=== PATIENT | female | born 1965 | race Caucasian/White ===

== ENCOUNTER → 2021-03-18 15:04 | Outpatient (CLI) | payer BC, SELFPAY ==
--- NOTE | ~2021-03-18 | MM_ITS ---
EXAMINATION: MM screening jessica BI w viki HISTORY: Screening mammogram TECHNIQUE: Craniocaudal and mediolateral oblique 3-D tomosynthesis images were obtained and synthetic 2-D images were generated. CAD analysis was submitted and interpreted. COMPARISON: 10/17/2018, 06/02/2017, 10/08/2015 bilateral digital screening mammogram examinations BREAST PARENCHYMAL COMPOSITION: There are scattered areas of fibroglandular density. FINDINGS: Stable fibroglandular asymmetry. There is no evidence of suspicious mass, calcification, or architectural distortion to suggest malignancy in either breast. There has been no suspicious interv al change. IMPRESSION: 1. No mammographic evidence of malignancy. 2. Recommend routine screening mammography in one year. BI-RADS Category 2: Benign finding(s). Reviewed, dictated and finalized at location A.
== END ==
PROVIDERS: PCP Family Medicine Adolescent Medicine; Visit Provider Obstetrics & Gynecology
DX: Z12.31 Encounter for screening mammogram for malignant neoplasm of breast (principal)
CPT/HCPCS: 77063; 77067

== ENCOUNTER → 2022-03-21 10:00 | Outpatient (CLI) | payer BC, SELFPAY ==
--- NOTE | ~2022-03-21 | DEXA_ITS ---
Bone Density Report Name: DEN FAUST Age: 57 Sex: Female Ethnicity: White Date of : 1965 Indication: postmenopausal; screening for osteoporosis; hysterectomy; Referring Provider: LUDMILA, SARA Study: Bone densitometry was performed. Exam Date: March 21, 2022 Accession number: [id number] Bone Density: Region BMD T-score Z-score Classification AP Spine (L1-L4) 1.267 2.0 3.1 Normal Femoral Neck (Left) 1.038 1.7 2.8 Normal Total Hip (Left) 1.228 2.3 3.0 Normal Femoral Neck (Right) 0.961 1.0 2.1 Normal Total Hip (Right) 1.177 1.9 2.6 Normal Total Hip Mean 1.203 2.1 2.8 Normal World Health Organization criteria for BMD impression classify patients as: Normal (T-score at or above -1.0), Osteopenia (T-score between -1.0 and -2.5), or Osteoporosis (T-score at or below -2.5). 10-year Fracture Risk: FRAX not reported because: All T-scores for Spine Total, Hip Total, Femoral Neck at or above -1.0 Clinical Information Provided by Patient: Has the following medical conditions: Hysterectomy Patient maximum height was 68 Menopause Age: 54 No regular weight bearing exercise Drinks caffeinated beverages Onset of menses at age 16 Number of children 1 Impression: The patient has normal bone mass. Discussion: LOW RISK OF FRACTURE; BONE DENSITY IS WELL ABOVE THE MINIMUM DESIRABLE LEVEL AND ABOVE AVERAGE FOR AGE AND SEX AT ALL SKELETAL SITES TESTED. This person's bone density is above expected limits for age and sex. This is rarely clinically significant, but should be pursued if there are significant musculoskeletal complaints. The patient should follow a healthful lifestyle (good nutrition with adequate calcium and vitamin D, and appropriate weight-bearing exercise). Follow-Up: Consider repeating this study in 5 years or sooner if there is some new clinical indication. Reported by: MONI on 03/21/2022 10:55:00 AM. Reviewed, dictated and finalized at location AJossie LEE
--- NOTE | ~2022-03-21 | MM_ITS ---
EXAMINATION: MM screening jessica BI w viki HISTORY: Screening TECHNIQUE: Craniocaudal and mediolateral oblique 3-D tomosynthesis images were obtained and synthetic 2-D images were generated. CAD analysis was submitted and interpreted. COMPARISON: Comparison to multiple prior studies sequentially, with oldest reviewed study dated 12/17. BREAST PARENCHYMAL COMPOSITION: Breast composed of scattered areas of fibroglandular density FINDINGS: There is no evidence of suspicious mass, calcification, or architectural distortion to sugg est malignancy in either breast. There has been no suspicious interval change. IMPRESSION: 1. No mammographic evidence of malignancy. 2. Recommend routine screening mammography in one year. BI-RADS Category 1: Negative Reviewed, dictated and finalized at location A.
== END ==
PROVIDERS: PCP Nurse Practitioner; Visit Provider Nurse Practitioner
DX: Z12.31 Encounter for screening mammogram for malignant neoplasm of breast (principal); Z78.0 Asymptomatic menopausal state
CPT/HCPCS: 77063; 77067; 77080

== ENCOUNTER 2022-03-23 00:29 | Day surgery (SDC) | payer BC, SELFPAY ==
[2022-03-03 14:44] VITALS: BMI 40.7
[2022-03-23 07:59] VITALS: BP 155/93; PULSE 65; RESP 20; TEMP 36.3; O2SAT 98; BMI 40.9
[2022-03-23] MEDS: LACTATED RINGERS 1,000 ML 150 ML IV CONT (08:08)
--- NOTE | 2022-03-23 08:41 | P.PNAN_ITS ---
Anes - Initial Pre Proc Eval Procedure: Operation Date: 03/23/22 09:00 Proposed Procedures p Screening Colonoscopy - Layo Luna MD Date/Time: 03/23/22 08:41 Surgeon: Layo Luna MD Pre Op Diagnosis: neoplasm screening Patient Data Age: 57 Gender: F Height: 1.7 m Weight: 118.7 kg Last Vital Signs Temp 97.3 F L 03/23/22 07:59 Pulse 65 03/23/22 07:59 Resp 20 03/23/22 07:59 BP 155/93 H 03/23/22 07:59 Pulse Ox 98 03/23/22 07:59 O2 Del Method Room Air 03/23/22 07:59 Allergies Allergy/AdvReac Type Severity Reaction Status Date / Time No Known Allergies Allergy Mild Verified 03/23/22 07:57 Home Medications Medication Instructions Recorded Confirmed Type sertraline 50 mg tablet 50 mg PO DAILY #30 tabs 12/05/21 03/03/22 Rx atorvastatin 40 mg tablet 40 mg PO DAILY 03/03/22 03/03/22 History cholecalciferol (vitamin D3) 1,250 1 tablet PO WEEKLY 03/03/22 03/03/22 History mcg (50,000 unit) tablet (Dialyvite Vitamin D3 Max) fexofenadine 180 mg tablet 180 mg PO DAILY 03/03/22 03/03/22 History fluticasone propionate 50 1 spray intranasal BID PRN Allergy 03/03/22 03/03/22 History mcg/actuation nasal Symptoms spray,suspension hydrochlorothiazide 12.5 mg tablet 12.5 mg PO DAILY 03/03/22 03/03/22 History losartan 100 mg tablet 100 mg PO DAILY 03/03/22 03/03/22 History mecobalamin (vitamin B12) 1,000 1,000 mcg PO DAILY 03/03/22 03/03/22 History mcg chewable tablet Patient hx anesthesia problems: none Family hx anesthesia problems: none Results Review: All pre-operative results and documents have been reviewed as part of the pre- operative evaluation. [facility] Social History Social History Smoking status: Former smoker Tobacco type: cigarettes Alcohol intake: current Alcohol use details: occasionally Living arrangements: with family Spiritual care concerns: No Anes - Eval Final PreProcedure Day of Procedure 06/29/22 08:41 Patient weight: morbidly obese Heart: regular rate and rhythm Lungs: clear to auscultation Airway: Mallampati scale class II Neurological: alert and oriented Last oral intake: >/= 8 hours ASA classification: III Emergent: no Anesthetic plan: proceed Anesthesia type and monitoring: general GIVS and standard monitoring Results Review: All pre-operative results and documents have been reviewed as part of the pre- operative evaluation. Informed Consent: The patient's anesthetic plan and its attendant risks and benefits were discussed with the patient/family/POA. Questions were solicited and answers provided to the satisfaction of the patient/family/POA.
--- NOTE | 2022-03-23 08:59 | PM.HPGS ---
History of Present Illness History of Present Illness Consent: Risks, benefits, and alternatives have been discussed and questions answered. Patient agrees to proceed with procedure. Chief complaint: neoplasm screening Narrative: Gale Bernard is a 57 year old female here for first screening colonoscopy Review of Systems Constitutional: Constitutional: Denies headache(s) and Denies weakness Eyes: Eyes: Denies blurry vision ENT: Reports Normal hearing present, Denies headache(s) and Denies neck pain Cardiovascular: Cardiovascular: Denies chest pain and Denies dyspnea Respiratory: Respiratory: Denies dyspnea Gastrointestinal: Gastrointestinal: Reports no additional gastrointestinal complaints Genitourinary: Genitourinary: Denies dysuria Musculoskeletal: Musculoskeletal: Denies neck pain Integumentary/Breasts: Skin/Breast: Denies dry skin Neurologic: Reports Normal hearing present, Denies headache(s) and Denies weakness Psychiatric: Psychiatric: Denies anxiety Endocrine: Endocrine: Denies change in body appearance Hematologic/Lymphatic: Hematologic/Lymphatic: Denies easy bleeding Allergic/Immunologic: Allergic/Immunologic: Denies urticaria PMFSH Past Medical History Medical History (Updated 03/23/22 @ 09:02 by Layo Luna MD) Colon cancer screening Social History Social History Smoking status: Former smoker Tobacco type: cigarettes Alcohol intake: current Alcohol use details: occasionally Living arrangements: with family Spiritual care concerns: No Meds Home Medications and Allergies Home Medications Medication Instructions Recorded Confirmed Type sertraline 50 mg tablet 50 mg PO DAILY #30 tabs 12/05/21 03/03/22 Rx atorvastatin 40 mg tablet 40 mg PO DAILY 03/03/22 03/03/22 History cholecalciferol (vitamin D3) 1,250 1 tablet PO WEEKLY 03/03/22 03/03/22 History mcg (50,000 unit) tablet (Dialyvite Vitamin D3 Max) fexofenadine 180 mg tablet 180 mg PO DAILY 03/03/22 03/03/22 History fluticasone propionate 50 1 spray intranasal BID PRN Allergy 03/03/22 03/03/22 History mcg/actuation nasal Symptoms spray,suspension hydrochlorothiazide 12.5 mg tablet 12.5 mg PO DAILY 03/03/22 03/03/22 History losartan 100 mg tablet 100 mg PO DAILY 03/03/22 03/03/22 History mecobalamin (vitamin B12) 1,000 1,000 mcg PO DAILY 03/03/22 03/03/22 History mcg chewable tablet Allergies Allergy/AdvReac Type Severity Reaction Status Date / Time No Known Allergies Allergy Mild Verified 03/23/22 07:57 Vital Signs Vital Signs - 24 hr 03/23/22 07:59 Temperature 97.3 F L Pulse Rate 65 Respiratory Rate 20 Blood Pressure 155/93 H Pulse Oximetry 98 Oxygen Delivery Room Air Exam Const: General: comfortable and no acute distress HENMT: General nose exam: Normal nares present Eyes: General: appearance normal, both eyes and all related structures Neck: Neck: no JVD Resp: Auscultation: clear to auscultation bilaterally Cardio: Rate: regular rate Rhythm: regular rhythm GI: Inspection: non-distended GI Palp: Yes Soft to palpation Skin: General skin exam: normal color Neuro: General: gait normal Speech: normal speech Extrem: General: normal to inspection Psych: Mental Status: mental status grossly normal Assessment and Plan Assessment and plan (1) Colon cancer screening: Code(s): Z12.11 - Encounter for screening for malignant neoplasm of colon Status: Acute Assessment and Plan: colonoscopy
[2022-03-23 09:21] VITALS: BP 124/78; PULSE 64; RESP 13; O2SAT 94
[2022-03-23 09:31] VITALS: BP 128/77; PULSE 65; RESP 12; O2SAT 97
[2022-03-23 09:41] VITALS: BP 128/80; PULSE 60; RESP 12; O2SAT 97
== END 2022-03-23 09:45 | disposition home or self-care (01) ==
PROVIDERS: PCP Nurse Practitioner; Visit Provider Internal Medicine Gastroenterology
PROC: 0DJD8ZZ Inspection of Lower Intestinal Tract, Via Natural or Artificial Opening Endoscopic (ICD-10-PCS; CPT 45378; principal; 2022-03-23 09:00)
DX: Z12.11 Encounter for screening for malignant neoplasm of colon (principal); K57.30 Diverticulosis of large intestine without perforation or abscess without bleeding; Z87.891 Personal history of nicotine dependence; E66.01 Morbid (severe) obesity due to excess calories; Z68.41 Body mass index [BMI] 40.0-44.9, adult
CPT/HCPCS: 45378; J2001; J2704; J7120

== ENCOUNTER 2022-10-18 20:53 | Emergency (ER) | payer BC, SELFPAY ==
--- NOTE | ~2022-10-18 | XR_ITS ---
EXAM: XR ankle RT min 3V DATE: 10/18/2022 21:53 HISTORY: fall . COMPARISON: None available. FINDINGS: Normal mineralization. Oblique minimally displaced fracture of the distal right fibula ext ending to the level of the joint line. No other fracture. No dislocation. No lytic or blastic lesion. Achilles and plantar enthesopathy. No erosion or periosteal change. Lateral soft tissue swelling. IMPRESSION: Oblique distal right fibular fracture (Fagan type B fracture). Reviewed, dictated and finalized at location K. ACER
--- NOTE | ~2022-10-18 | XR_ITS ---
EXAM: XR ankle LT min 3V DATE: 10/18/2022 21:53 HISTORY: fall . COMPARISON: None available. FINDINGS: Normal mineralization. No fracture or dislocation. No lytic or blastic lesion. Joint space s are maintained. No erosion or periosteal change. Soft tissues within normal limits. IMPRESSION: No acute osseous finding in the left ankle. Reviewed, dictated and finalized at location K. [employer]ISH[employer]
[2022-10-18 21:10] VITALS: BP 149/85; PULSE 72; RESP 16; TEMP 36.8; O2SAT 97
--- NOTE | 2022-10-18 22:32 | ED.LOWEXIN ---
HPI - Extremity Injury (Lower) General Chief Complaint: Extremity Injury, Lower Stated Complaint: fell down 1 concrete step-pain in bilateral ankle Time Seen by Provider: 10/18/22 22:21 History of Present Illness HPI Narrative: Patient is a 57-year-old female here for evaluation of bilateral ankle pain. Patient states that she was going down steps when she missed a step and fell, landing with her right ankle in eversion. She denies any head injury or loss of consciousness. She has been unable to walk due to pain. Has not taken any pain meds yet. No numbness, tingling, weakness in the leg. She was in her usual state of health prior to the fall. Related Data Home Medications Medication Instructions Recorded Confirmed atorvastatin 40 mg tablet 40 mg PO DAILY 03/03/22 06/07/22 cholecalciferol (vitamin D3) 1,250 1 tablet PO WEEKLY 03/03/22 06/07/22 mcg (50,000 unit) tablet (Dialyvite Vitamin D3 Max) hydrochlorothiazide 12.5 mg tablet 12.5 mg PO DAILY 03/03/22 06/07/22 losartan 100 mg tablet 100 mg PO DAILY 03/03/22 06/07/22 mecobalamin (vitamin B12) 1,000 1,000 mcg PO DAILY 03/03/22 06/07/22 mcg chewable tablet fexofenadine 180 mg tablet 180 mg PO DAILY 06/07/22 06/07/22 ([facility]) fluticasone propionate 50 2 spray intranasal DAILY 06/07/22 06/07/22 mcg/actuation nasal spray,suspension (Flonase Allergy Relief) Allergies Allergy/AdvReac Type Severity Reaction Status Date / Time No Known Allergies Allergy Mild Verified 10/18/22 22:41 Review of Systems Review of Systems: Gen.: Denies fevers or chills Eyes: Denies eye pain or visual change ENT: Denies congestion Respiratory: Denies shortness of breath or cough CV: Denies chest pain or palpitations GI: Denies abdominal pain nausea, emesis or diarrhea denies burning, urgency, frequency or hematuria Musculoskeletal: Reports bilateral ankle pain. Neuro: Denies numbness, tingling, weakness or focal weakness Skin: Denies rash Except as documented, all other systems reviewed and negative PMFSH Surgical History Surgical History History of hysterectomy (~07/2017) Hx of dilation and curettage Social History Social History Smoking status: Former smoker Tobacco type: cigarettes Alcohol intake: current Alcohol use details: occasionally Living arrangements: with family Spiritual care concerns: No Exam Narrative: Gen: Alert, oriented, no acute distress Eyes: EOMI, no icterus Pulm: Respirations even and unlabored, symmetric thorax expansion, no audible stridor or visible cyanosis CV: Regular rate per telemetry GI: No distension, no voluntary/involuntary guarding Neuro: AOx4, moves all extremities without apparent difficulty or weakness, follows commands MSK: Patient has large area of swelling and bruising to the lateral aspect of her right ankle that is tender to palpation. Sensation is intact distal to this area. She has strong peripheral pulses. Compartments are soft. She has pain with plantar flexion of the foot. there is no deformity to the left ankle. No bony tenderness to either hip or knee. Skin: There is a superficial abrasion overlying the right patella with no active bleeding. No jaundice, no visible bruising, rashes, lesions or wounds on exposed skin Psych: Normal mood/affect, insight/judgement good, adequate fund of knowledge, recent/remote memory intact Course Vital Signs Vital signs: Vital Signs Temperature 98.2 F 10/18/22 21:10 Pulse Rate 72 10/18/22 21:10 Respiratory Rate 16 10/18/22 21:10 Blood Pressure 149/85 H 10/18/22 21:10 Pulse Oximetry 97 10/18/22 21:10 Oxygen Delivery Room Air 10/18/22 21:10 Temperature 98.2 F 10/18/22 21:10 Pulse Rate 72 10/18/22 21:10 Respiratory Rate 16 10/18/22 21:10 Blood Pressure 149/85 H 10/18/22 21:10 Pulse Oximetry 97
[2022-10-18] MEDS: HYDROcodone/acetaminophen (*CRX) 5-325 MG TABLET 1 TAB PO (22:43)
--- NOTE | 2022-10-18 23:06 | PC.NURSE ---
Patient report given to MICHELLE Vargas. All questions answered and care of patient transferred.
== END 2022-10-19 00:14 | disposition home or self-care (01) ==
PROVIDERS: Emergency Provider Physician Assistant; PCP Family Medicine Adolescent Medicine
DX: S82.831A Other fracture of upper and lower end of right fibula, initial encounter for closed fracture (principal); W10.9XXA Fall (on) (from) unspecified stairs and steps, initial encounter
CPT/HCPCS: 29515; 73610; 99284; A9270

== ENCOUNTER → 2023-06-16 15:02 | Outpatient (CLI) | payer BC, SELFPAY ==
--- NOTE | ~2023-06-16 | MM_ITS ---
EXAMINATION: MM screening [facility] BI w viki HISTORY: Screening TECHNIQUE: Craniocaudal and mediolateral oblique 3-D tomosynthesis images were obtained and synthetic 2-D images were generated. CAD analysis was submitted and interpreted. COMPARISON: Comparison to multiple prior studies sequentially, with oldest reviewed study dated 12/17. BREAST PARENCHYMAL COMPOSITION: There are scattered areas of fibroglandular density. FINDINGS: There are no subareolar nodules of the left breast. The right breast is stable without evidence for m alignancy. IMPRESSION: 1. New subareolar nodules of the left breast. 2. Additional mammographic views and possible breast ultrasound are recommended. BI-RADS Category 0: Incomplete: Needs additional imaging evaluation. Reviewed, dictated and finalized at location A. IMPRESSION: 1. New subareolar nodules of the left breast. 2. Additional mammographic views and possible breast ultrasound are recommended . BI-RADS Category 0: Incomplete: Needs additional imaging evaluation.
== END ==
PROVIDERS: PCP Family Medicine Adolescent Medicine; Visit Provider Nurse Practitioner
DX: Z12.31 Encounter for screening mammogram for malignant neoplasm of breast (principal); R92.8 Other abnormal and inconclusive findings on diagnostic imaging of breast
CPT/HCPCS: 77063; 77067

== ENCOUNTER 2023-06-21 12:25 | Outpatient (CLI) | payer BC, SELFPAY ==
--- NOTE | 2023-06-21 15:52 | WPDPFTINT ---
PFT Procedure Performed PFT Procedure Performed Spirometry with Pre/Post Bronchodilator Plethysmography (Lung Vol) Diffusing Cap (DLCO) Flow Vol Loop PFT Interpretation This is a pulmonary function test with pre and post-bronchodilator spirometry, plethysmography and diffusing capacity. The test was performed and results interpreted in accordance with the 2019 and 2005 ATS/ERS Task Force guidelines respectively using the Global Lung Function Initiative-2012 reference equations. Patient demonstrated good effort and cooperation. Reproducibility criteria were met. The quality of the pre bronchodilator spirometry maneuver was Grade A and post bronchodilator spirometry maneuver was Grade B. Findings: Spirometry: There is decreased maximal expiratory airflow at low lung volumes with concave expiratory flow tracing. The contour the inspiratory flow tracing is normal. The pre bronchodilator FVC is 3.63 L, 96% predicted. The pre bronchodilator FEV1 is 2.39 L, 80% predicted. The pre bronchodilator FEV1: FVC ratio is 66%. The post bronchodilator FVC is 3.53 L, representing a 3% decrease. The post bronchodilator FEV1 is 2.50 L, representing a 5% increase. The post bronchodilator FEV1: FVC ratio 71%. Plethysmography: The total lung capacity is 5.32 L, 94% predicted. The functional residual capacity is 2.29 L, 71% predicted. The residual volume is 1.69 L, 80% predicted. Diffusing capacity: The diffusing capacity unadjusted for hemoglobin and carboxyhemoglobin is 21.2, 90% predicted. The diffusing capacity adjusted for alveolar volume is 4.53, 105% predicted. Impression: There is a mild obstructive abnormality with a normal FEV1 and without significant improvement after inhaling a single dose of albuterol. The lung volumes are normal. The the diffusing capacity is normal. There are no prior studies for comparison
== END 2023-06-21 12:26 | disposition home or self-care (01) ==
LOC: ANHPFT 12:26
PROVIDERS: PCP Family Medicine Adolescent Medicine; Visit Provider Nurse Practitioner Family
DX: R06.00 Dyspnea, unspecified (principal); R94.2 Abnormal results of pulmonary function studies
CPT/HCPCS: 94060; 94726; 94729

== ENCOUNTER → 2023-07-12 07:41 | Outpatient (CLI) | payer BC, SELFPAY ==
--- NOTE | ~2023-07-12 | MMUS_ITS ---
EXAMINATION: MM diagnostic jessica LT w viki, US breast LT limited HISTORY: Follow-up subareolar asymmetries TECHNIQUE: Additional 3-D tomosynthesis images of the left breast were performed and synthetic 2-D im ages were generated. CAD analysis was submitted and interpreted. High resolution Limited left breast ultrasound was performed. COMPARISON: 06/16/2023 BREAST PARENCHYMAL COMPOSITION: Breast composed of scattered areas of fibroglandular density FINDINGS: MAMMOGRAPHIC FINDINGS: Left breast asymmetries in the subareolar location compresses with spot views and appear to be promin ent ducts. No suspicious masses, calcifications or architectural distortion to suggest malignancy. ULTRASOUND: Limited left breast ultrasound: Mildly prominent ducts. No discrete solid or cystic mass is identifie d. IMPRESSION: 1. No evidence for malignancy in the left breast. 2. Routine yearly screening mammogram and regular clinical breast examination are recommended. BI-RADS Category 1: Negative Reviewed, dictated and finalized at location A. IMPRESSION: 1. No evidence for malignancy in the left breast. 2. Routine yearly screening mammogram and regular clinical breast examination a re recommended. BI-RADS Category 1: Negative
== END ==
PROVIDERS: PCP Family Medicine Adolescent Medicine; Visit Provider Obstetrics & Gynecology Gynecology
DX: R92.8 Other abnormal and inconclusive findings on diagnostic imaging of breast (principal)
CPT/HCPCS: 76642; 77061; 77065; G0279

== ENCOUNTER 2023-07-26 12:44 | Outpatient (CLI) | payer BC, SELFPAY | END 2023-07-26 12:45 | disposition home or self-care (01) | LOC: ANHAUDIO 12:45 | PROVIDERS: PCP Family Medicine Adolescent Medicine; Visit Provider Otolaryngology | DX: H65.22 Chronic serous otitis media, left ear (principal); H90.3 Sensorineural hearing loss, bilateral | CPT/HCPCS: 92557; 92567 ==

== ENCOUNTER 2025-01-22 15:02 | Outpatient (CLI) | payer BC, SELFPAY ==
--- NOTE | ~2025-01-22 | MM_ITS ---
EXAMINATION: MM screening jessica BI w viki HISTORY: Screening TECHNIQUE: Craniocaudal and mediolateral oblique 3-D tomosynthesis images were obtained and synthetic 2-D images were generated. CAD analysis was submitted and interpreted. COMPARISON: Comparison to multiple prior studies sequentially, with oldest reviewed study dated 04/2017. BREAST PARENCHYMAL COMPOSITION: Not dense: There are scattered areas of fibroglandular density. FINDINGS: There are developing asymmetries in the upper central aspect of the right breast, middle th ird in the subareolar location of the left breast on CC view. IMPRESSION: 1. Developing breast asymmetries. 2. Additional mammographic views and possible breast ultrasound are recommended. BI-RADS Category 0: Incomplete: Needs additional imaging evaluation. Reviewed, dictated and finalized at location A. IMPRESSION: 1. Developing breast asymmetries. 2. Additional mammographic views and possible breast ultrasound are recommended . BI-RADS Category 0: Incomplete: Needs additional imaging evaluation.
== END 2025-01-22 15:03 | disposition home or self-care (01) ==
LOC: MICIMG 15:03
PROVIDERS: PCP Family Medicine Adolescent Medicine; Visit Provider Nurse Practitioner
DX: Z12.31 Encounter for screening mammogram for malignant neoplasm of breast (principal); R92.8 Other abnormal and inconclusive findings on diagnostic imaging of breast
CPT/HCPCS: 77063; 77067

== ENCOUNTER 2025-02-24 08:00 | Outpatient (CLI) | payer BC, SELFPAY ==
--- NOTE | ~2025-02-24 | MMUS_ITS ---
EXAMINATION: MM diagnostic jessica BI w viki, US breast BI complete HISTORY: Abnormal mammogram TECHNIQUE: Additional 3-D tomosynthesis images of the breasts were performed and synthetic 2-D images were generated. CAD analysis was submitted and interpreted. High resolution bilateral complete breas t ultrasound was performed. COMPARISON: Comparison to multiple prior studies sequentially, with oldest reviewed study dated 10/17. BREAST PARENCHYMAL COMPOSITION: Not dense: There are scattered areas of fibroglandular density. FINDINGS: MAMMOGRAPHIC FINDINGS: Bilateral breast asymmetries are less apparent with spot compression views, compatible with superimpo sed fibroglandular tissue. No suspicious masses, calcifications or architectural distortion in either breast to suggest malignancy. ULTRASOUND: Complete US of all 4 quadrants of the breast/s and retroareolar region was reviewed. Normal heterogen eous echotexture without focal solid or cystic mass. IMPRESSION: 1. No evidence for malignancy in either breast. 2. Routine yearly screening mammogram and regular clinical breast examination are recommended. BI-RADS Category 1: Negative Reviewed, dictated and finalized at location A. IMPRESSION: 1. No evidence for malignancy in either breast. 2. Routine yearly screening mammogram and regular clinical breast examination a re recommended. BI-RADS Category 1: Negative
== END 2025-02-24 08:01 | disposition home or self-care (01) ==
LOC: MICIMG 08:01
PROVIDERS: PCP Family Medicine Adolescent Medicine; Visit Provider Obstetrics & Gynecology Gynecology
DX: R92.8 Other abnormal and inconclusive findings on diagnostic imaging of breast (principal)
CPT/HCPCS: 76641; 77062; 77066; G0279

== ENCOUNTER 2025-06-20 12:50 | Outpatient (CLI) | payer BC, SELFPAY ==
--- NOTE | ~2025-06-20 | DEXA_ITS ---
Bone Density Report Name: DEN FAUST Age: 60 Sex: Female Ethnicity: White Date of : 1965 Indication: postmenopausal; screening for osteoporosis; height loss; prior fracture; hysterectomy; Referring Provider: FRANCESCA WU Study: Bone densitometry was performed. Exam Date: June 20, 2025 Accession number: [id number] Bone Density: Region BMD T-score Z-score Classification AP Spine(L1-L4) 1.115 0.6 1.9 Normal Femoral Neck (Left) 0.871 0.2 1.4 Normal Total Hip (Left) 1.131 1.5 2.4 Normal Femoral Neck (Right) 0.960 1.0 2.2 Normal Total Hip (Right) 1.106 1.3 2.2 Normal Total Hip Mean 1.118 1.4 2.3 Normal World Health Organization criteria for BMD impression classify patients as: Normal (T-score at or above -1.0), Osteopenia (T-score between -1.0 and -2.5), or Osteoporosis (T-score at or below -2.5). 10-year Fracture Risk: FRAX not reported because: All T-scores for Spine Total, Hip Total, Femoral Neck at or above -1.0 Previous Exams: -- Region Exam Age BMD T-score BMD Change BMD Change Date g/cm2 vs Baseline vs Previous -- AP Spine (L1-L4) 06/20/2025 60 1.115 0.6 -12.0%# -12.0%# 03/21/2022 57 1.267 2.0 Total Hip(Left) 06/20/2025 60 1.131 1.5 -7.9%# -7.9%# 03/21/2022 57 1.228 2.3 Total Hip(Right) 06/20/2025 60 1.106 1.3 -6.0%# -6.0%# 03/21/2022 57 1.177 1.9 -- *Denotes significance at 95% confidence level, LSC for AP Spine = 0.022 g/cm2, LSC for Total Hip = 0.027 g/cm2 # Denotes dissimilar scan types or analysis methods Clinical Information Provided by Patient: Has had a low trauma fracture Has used the following medications: Vitamin D Has the following medical conditions: Hysterectomy Patient maximum height was 68 Menopause Age: 54 No regular weight bearing exercise Does not regularly consume dairy products Drinks caffeinated beverages Onset of menses at age 16 Number of children 1 Missed period for more than 6 months in a row Impression: The patient has normal bone mass. The patient has risk factors, including: previous fracture. Unable to evaluate interval change due to the use of different scan modes. Discussion: BONE DENSITY IS ABOVE THE MINIMUM DESIRABLE LEVEL AT ALL SKELETAL SITES TESTED. This patient?s bone mineral density is above the minimum desirable level (T-score -1.0 or better) at all sites measured. The patient should follow a healthful lifestyle (good nutrition with adequate calcium and vitamin D, and appropriate weight-bearing exercise). Follow-Up: Consider repeating this study in 5 years or sooner if there is some new clinical indication. Reported by: RORO on 06/20/2025 1:16:00 PM. Reviewed, dictated and finalized at location A.
== END 2025-06-20 12:51 | disposition home or self-care (01) ==
LOC: MICIMG 12:55
PROVIDERS: PCP Family Medicine Adolescent Medicine; Visit Provider Obstetrics & Gynecology Gynecology
DX: Z78.0 Asymptomatic menopausal state (principal)
CPT/HCPCS: 77080